=== PATIENT | female | born 1965 ===

== ENCOUNTER 2017-02-26 17:00 | Emergency (ER) | payer OTHER ==
[~2017-02-26] VITALS: Ht 170.2 cm; Wt 145.4 kg
--- NOTE | 2017-02-26 17:06 | ED.REPORT ---
HPI-General Illness Date of Service Feb 26, 2017 ED Provider: Dr. Maycol Dupont M.D. Patient is a 51 year old female with a medical history including hyperlipidemia , hypertension, diabetes, and paroxysmal atrial fibrillation on daily ASA who presents to the ED from Urgent Care reporting a cough onset six months ago. Associated symptoms include shortness of breath, subjective fever, chills, general fatigue, wheezing, and a weight gain of 30 lbs. Her cough and SOB are exacerbated with exertion and have been making it difficult for her to sleep at night. She also reported vague pleuritic symptoms at , but these have since resolved. The patient denies other symptoms. She was diagnosed with pneumonia at the end of last year and completed a course of Rocephin and doxycycline at that time, without relief of her symptoms. The patient's most recent Echo in 2014 showed a normal ejection fraction of 60%. She also had a normal nuclear stress test at the end of 2014. The patient denies a history of asthma, COPD, blood clots, recent prolonged inactivity, or recent long trips. 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 Nursing Notes Stated Complaint: SOB Chief Complaint: Respiratory Distress Nursing Notes Reviewed: Yes Allergies: Coded Allergies: No Known Allergies (Verified , 07/07/08) Scheduled Amlodipine (Amlodipine) 10 Mg Tablet 10 MG PO QAM Aspirin (Aspirin) 325 Mg Tablet 325 MG PO QAM Atorvastatin (Lipitor) 80 Mg Tablet 80 MG PO QAM Beclomethasone Dipropionate (Qvar) 8.7 Gm Aer.w.adap 2 PUFF INHALATION BID 80 MCG INHALER Chlorthalidone (Chlorthalidone) 25 Mg Tablet 25 MG PO QAM Citalopram (Citalopram) 40 Mg Tablet 40 MG PO QAM Enoxaparin Sodium (Lovenox) 150 Mg/1 Ml Syringe 150 MG SUBQ Q12 Exenatide Inj (Byetta Inj) 5 Mcg/0.02 Ml Pen.injctr 5 MCG SUBQ BIDAC Gemfibrozil (Gemfibrozil) 600 Mg Tablet 600 MG PO BIDWM Glyburide (Glyburide) 5 Mg Tab 5 MG PO BIDAC Hydrochlorothiazide (Hydrochlorothiazide) 25 Mg Tablet 25 MG PO QAM Insulin Aspart (NovoLOG U-100 Pen) 100 Unit/Ml Insuln.pen 20-50 UNITS SUBQ TIDWM Insulin Glargine (Lantus U100 Insulin Vial) 100 Unit/Ml Vial 80 UNIT SUBQ HS Losartan Potassium (Cozaar) 100 Mg Tablet 100 MG PO QAM Metformin ER (Metformin ER) 500 Mg Tablet 1,000 MG PO BIDWM Metoprolol Succinate ER (Metoprolol Succinate ER) 100 Mg Tab.er.24h 100 MG PO BID Prednisone (PredniSONE) 20 Mg Tablet 40 MG PO DAILY Spironolactone (Spironolactone) 25 Mg Tablet 25 MG PO QAM Warfarin Sodium (Coumadin) 5 Mg Tablet 5 MG PO DAILY Scheduled PRN Albuterol HFA (Proair HFA) 8.5 Gm Hfa.aer.ad 2 PUFFS INHALATION Q4H PRN PRN For Shortness of Breath Albuterol Neb Soln (Albuterol Neb Soln) 2.5 Mg/3 Ml Vial.neb 2.5 MG INHALATION Q4H PRN PRN For Wheezing Alprazolam (Alprazolam) 0.25 Mg Tablet 0.25 MG PO TID PRN PRN For Anxiety Hydrocodone-Acetaminophen 7.5-325 mg (Hydrocodone-Acetaminophen 7.5-325 mg) 1 Each Tablet 1 TABLET PO Q6H PRN PRN For Pain Ipratropium/Albuterol Sulfate (Iprat-Albut 0.5-3(2.5) mg/3 mL Inhalant Soln) 3 Ml Ampul.neb 3 ML IH Q6H PRN PRN For Shortness of Breath General Time Seen by MD: 17:05 Chief Complaint Cough Hx Obtained From: Patient Arrived By: Walk-in Sudden in Onset?: No Onset Occurred: More than a week ago... (6 months) Symptom Duration: Since onset Severity: Current: No pain currently Severity: Maximum: No pain Exacerbated by: Standing up (Exertion) Pertinent Negative: Relieved by nothing Context Related History: Reports Diabetes mellitus Recent Healthcare: Recent doctor visit, Previous diagnosis, Prior workup Similar Sx Previous: Yes Past Medical History Past Medical History Hyperlipidemia Hypertension Obesity Diabetes type 2 Paroxysmal atrial fibrillation on daily ASA Hidradenitis suppurativa Osteoarthritis Anxiety Depression Past Surgical History None reported Smoking History Former Smoker Occupation [place] [employer] Ambulatory Status Independent Review of Systems Full Review of Systems Constitutional: Reports: Chills, Fatigue, Fever (Subjective) Respiratory: Reports: Non-productive cough, Shortness of breath, Wheezing, Denies: Pleuritic pain (Previously present, has since resolved) Cardiovascular: Denies: Chest pain GI: Denies: Diarrhea, Vomiting Endocrine: Reports: Weight gain (30lbs) Psychiatric: Reports: Insomnia Complete sys rev & neg: except as marked. Physical Exam Vital Signs Vital Signs Date Time Temp Pulse Resp B/P Pulse Ox O2 Delivery O2 Flow Rate FiO2 02/26/17 19:35 95 26 133/73 95 Room Air 02/26/17 17:58 90 18 94 Room Air 02/26/17 17:09 36.7 92 13 145/86 97 Room Air Initial VS: Reviewed Head / Eyes: Atraumatic, Normocephalic ENT: Conjunctiva normal, No scleral icterus Skin: Warm, Dry Neurologic: Alert, Oriented, Nonfocal Psychiatric: Mood/affect normal, Behavior normal, Normal thought content General/Constitutional: Awake, Alert Respiratory / Chest: Breath sounds = bilat, No respiratory distress Wheezing / Retractions: Positive: Wheezing expiratory (Mild) No crackles Cardiovascular: Heart rate NL (80s), Heart sounds NL, Peripheral circulation NL (Good distal pulses) Heart Rate / Rhythm: Positive: Irregular rhythm Lower Ext Edema: Positive: Bilateral 1+ (Up 2/3 to knees) Abdomen: Soft, Non-tender, No distention Lower Extremity / Pelvis / MS: Full range of motion No unilateral calf swelling or tenderness Interpretation & Diagnostics Lab Results Interpretation Result Diagram: 02/26/17 1753 02/26/17 1753 Test 02/26/17 17:53 White Blood Count 13.0th/mm3 (3.8-10.1) Red Blood Count 5.29mil/mm3 (3.90-5.20) Hemoglobin 13.1g/dL (12.0-15.6) Hematocrit 41.1% (35.0-46.0) Mean Corpuscular Volume 77.7fL (81-100) Mean Corpuscular Hemoglobin 24.8pg (27.0-35.0) Mean Corpuscular Hemoglobin Concent 31.9% (32.0-37.0) Red Cell Distribution Width 14.8% (12.3-15.4) Platelet Count 313bil/L (150-400) Neutrophils (%) (Auto) 80.3% (40-74) Lymphocytes (%) (Auto) 11.3% (14-46) Monocytes (%) (Auto) 7.3% (4-12) Eosinophils (%) (Auto) 0.6% (0-5) Basophils (%) (Auto) 0.3% (0-3) D-Dimer < 0.50mg/L FEU (<0.50) Sodium Level 136mEq/L (134-144) Potassium Level 4.2mEq/L (3.5-5.2) Chloride Level 98mEq/L (97-108) Carbon Dioxide Level 23mmol/L (18-29) Blood Urea Nitrogen 16mg/dL (6-24) Creatinine 0.41mg/dL (0.57-1.00) Estimat Glomerular Filtration Rate 233mL/min (>59) Glucose Level 200mg/dL (60-99) Calcium Level 9.4mg/dL (8.5-10.1) Magnesium Level 1.7mg/dL (1.6-2.6) Total Bilirubin 0.4mg/dL (0.0-1.2) Aspartate Amino Transf (AST/SGOT) 15U/L (0-50) Alanine Aminotransferase (ALT/SGPT) 17U/L (0-32) Alkaline Phosphatase 69U/L (25-150) Troponin T < 0.010ug/L (0.0-0.011) Pro-B-Type Natriuretic Peptide 398.9pg/mL (0-249) Total Protein 7.2g/dL (6.4-8.4) Albumin 3.7g/dL (3.4-5.0) Hold Garner Top Tube Received (Received) ECG Interpretation ECG Interpretation: Atrial fibrillation rate 94 Normal axis Normal intervals No acute ST segment changes No T-wave abnormalities No prior ECG available for comparison Time: 17:57 Interpreted by: ED physician X-Ray Chest Interpretation Chest Xray Interpretation: IMPRESSION: 1. Mild interstitial prominence which may represent chronic interstitial lung disease or mild interstitial edema. Dictated by: Stephan Black M.D. on 02/26/2017 at 18:41 View: AP & lat Interpretation / Wet Read by: Interpret - Radiologist Re-Eval/Medical Decision Med Decision/Clinical Course Patient is a 51 year old female with a medical history including hyperlipidemia , hypertension, diabetes, and paroxysmal atrial fibrillation on daily ASA who presents to the ED from Urgent Care reporting a cough onset six months ago. Associated symptoms include shortness of breath, subjective fever, chills, general fatigue, wheezing, and a weight gain of 30 lbs. Her cough and SOB are exacerbated with exertion and have been making it difficult for her to sleep at night. She also reported vague pleuritic symptoms at , but these have since resolved. The patient denies other symptoms. She was diagnosed with pneumonia at the end of last year and completed a course of Rocephin and doxycycline at that time, without relief of her symptoms. The patient's most recent Echo in 2014 showed a normal ejection fraction of 60%. She also had a normal nuclear stress test at the end of 2014. The patient denies a history of asthma, COPD, blood clots, recent prolonged inactivity, or recent long trips. 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 Here in the emergency department the patient is afebrile with stable vital signs and examination as above. Patient was given a DuoNeb in ED reported significant symptomatic improvement. ECG 17:57 Atrial fibrillation rate 94 Normal axis Normal intervals No acute ST segment changes No T-wave abnormalities No prior ECG available for comparison LABS: Leukocytosis at 13 Hematocrit 41.1 MCV 77.7 CMP unremarkable other than a glucose of 200 Troponin negative BNP 398 D-Dimer negative Chest x-ray: 1. Mild interstitial prominence which may represent chronic interstitial lung disease or mild interstitial edema. She remained comfortable and in no apparent distress. Overall presentation relatively unconvincing for pulmonary embolism. Patient without clinical findings of DVT and she has no major risk factors for PE. D-dimer is negative. BNP is not significantly elevated and I do not appreciate significant pulmonary edema on her chest x-ray. EKG does not do not see any acute ischemic changes and initial troponin is negative. No significant electrolyte abnormalities. Patient reported significant symptomatic improvement after nebulizer treatment and was given 40 mg oral prednisone as well as a 5 day course of prednisone. She was given an albuterol inhaler for treatment of her wheezing and respiratory symptoms. She was started on Lovenox bridged to Coumadin and she will follow up closely with her primary care physician to monitor her INR. She was educated on how to self administer Lovenox. At this time I feel that she is appropriate for discharge home. Prior to discharge follow-up and return precautions were reviewed in detail with the patient who verbalized understanding and agreement with the plan. The patient was discharged in stable condition. Source of Hx: Old records Time of Eval: 18:58 Patient Status: Condition improved Re-Evaluation/Progress Note: Discussed with patient lab and x-ray results, diagnosis, and plan for discharge. Follow-up and return to the ER instructions given. Patient agrees with plan for care and all questions were addressed. Counseled Regarding: Diagnosis, Lab results, Need for follow-up, When/why to return to ED Discharge & Departure Primary Impression: COPD exacerbation Additional Impressions: Atrial fibrillation Atrial fibrillation type: paroxysmal Qualified Code: I48.0 - Paroxysmal atrial fibrillation Shortness of breath Chest pain made worse by breathing Tobacco abuse Wheezing Disposition: Home Discharge Condition All VS Reviewed: Yes Condition: Improved Patient Instructions: Atrial Fibrillation (ED), Chronic Obstructive Pulmonary Disease (ED) Additional Instructions: Thank you for seeking care at the emergency room. It is difficult for us to make definitive diagnoses in the ED but we believe that you are experiencing shortness of breath related to your smoking history and likely underlying COPD. Our primary goal today in the ED was to evaluate you for any life-threatening conditions. Your evaluation was reassuring. You will be discharged with a prescription for anticoagulation, your doctor has recommended that you be on a blood thinner and today we have started this with help from our emergency room pharmacists. Please start giving herself Lovenox injections twice daily as directed and taking Coumadin. You will need to have your INR checked and keep taking Lovenox until your INR is therapeutic. You should follow-up with your primary doctor in the next week. Please use albuterol inhaler with spacer every 2-4 hours as needed and take full course of prednisone. You should return to the ED immediately if you develop any worsening symptoms, signs of bleeding, fevers, vomiting, cough, shortness of breath, chest pain, lightheadedness, weakness or any other concerning signs or symptoms. Thank you for letting us partake in your care today. Referrals: Brii Plasencia MD (PCP) Scribe Attestation Portions of this note were transcribed by Juany Gomez. I, Dr. Dupont, personally performed the history, physical exam, and medical decision-making; I reviewed and confirmed the accuracy of the information in the transcribed note. Signed by: Mack Donald, 02/26/2017, 21:30 copies to: Brii Plasencia MD, Beck O MD Feb 26, 2017 17:06 JUANY GOMEZ Feb 26, 2017 17:33
[2017-02-26 17:09] VITALS: BP 145/86; PULSE 92; RESP 13; O2SAT 97
[2017-02-26] MEDS ORDERED: Albuterol-Ipratropium 3 mL Inhalation Solution NEB ONE (17:45)
[2017-02-26 17:58] VITALS: PULSE 90; RESP 18; O2SAT 94
[2017-02-26 18:00] LABS: BASOPHILS % (AUTO) 0.3 % (0-3); EOSINOPHILS % (AUTO) 0.6 % (0-5); MONOCYTES % (AUTO) 7.3 % (4-12); Mean Corpuscular Hemoglobin 24.8 pg (27.0-35.0); Mean Corpuscular Volume 77.7 fL (81-100); NEUTROPHILS % (AUTO) 80.3 % (40-74); Platelet Count 313 bil/L (150-400)
[2017-02-26] MEDS ORDERED: IPRA3AMP IH (18:29)
[2017-02-26] MEDS ORDERED: HYDR-3825 PO (18:29)
[2017-02-26] MEDS ORDERED: DOXY100C2 PO (18:29)
[2017-02-26] MEDS ORDERED: BECL8.7A6 INHALATION (18:29)
[2017-02-26] MEDS ORDERED: ALPR0.254 PO (18:29)
[2017-02-26] MEDS ORDERED: GEMF600T3 PO (18:29)
[2017-02-26] MEDS ORDERED: METF500T7 PO (18:29)
[2017-02-26] MEDS ORDERED: AMLO10TA3 PO (18:29)
[2017-02-26] MEDS ORDERED: METO-274 PO (18:29)
[2017-02-26] MEDS ORDERED: CITA40TA13 PO (18:29)
[2017-02-26] MEDS ORDERED: HYG25 PO (18:29)
[2017-02-26] MEDS ORDERED: APIX5TAB PO (18:29)
[2017-02-26] MEDS ORDERED: INSU100I SUBQ (18:29)
[2017-02-26] MEDS ORDERED: BENZ200C44 PO (18:29)
[2017-02-26] MEDS ORDERED: INSU100V7 SUBQ (18:29)
[2017-02-26] MEDS ORDERED: GLBR5T PO (18:29)
[2017-02-26] MEDS ORDERED: ATOR80TA PO (18:29)
[2017-02-26] MEDS ORDERED: ASPI325T32 PO (18:29)
[2017-02-26] MEDS ORDERED: EXEN5PEN2 SUBQ (18:29)
[2017-02-26] MEDS ORDERED: LOSA100T29 PO (18:29)
[2017-02-26] MEDS ORDERED: ALBU8.5H2 INHALATION (18:29)
[2017-02-26] MEDS ORDERED: SPIR25TA3 PO (18:30)
[2017-02-26 18:34] LABS: Magnesium 1.7 mg/dL (1.6-2.6); TROPONIN T < 0.010 ug/L (0.0-0.011)
--- NOTE | 2017-02-26 18:45 | DRSVH ---
PROCEDURE: X-RAY CHEST, TWO VIEWS ([id number]) INDICATIONS: Shortness of breath TECHNIQUE: 2 views of the chest were acquired. COMPARISON: [facility], CR, CHEST 2VW, 02/27/2012, 10:20. [facility], CR, CH EST 2VW, 07/02/2008, 10:52. [facility], CR, XR CHEST 2VW, 01/24/2017, 15:49. FINDINGS: Surgical changes and devices: None. Lungs and pleura: No pleural effusions or pneumothorax. There is mild interstitial prominence again noted. No focal consolidation. Mediastinum: Mediastinal contours are normal. Heart size is normal. Bones and chest wall: No suspicious bony abnormalities. Soft tissues appear unremarkable. IMPRESSION: 1. Mild interstitial prominence which may represent chronic interstitial lung disease or mild inters titial edema. Dictated by: Stephan Black M.D. on 02/26/2017 at 18:41 Approved by: Stephan Black M.D. on 02/26/2017 at 18:43
[2017-02-26] MEDS ORDERED: Albuterol HFA 60 Puff 8 Gm Inhaler INHALATION PRN (18:50)
[2017-02-26] MEDS ORDERED: WARF5TAB PO (18:50)
[2017-02-26] MEDS ORDERED: ENOX150D SUBQ (18:50)
[2017-02-26] MEDS ORDERED: HYDR25TA4 PO (18:58)
[2017-02-26] MEDS ORDERED: predniSONE 20 mg Tablet PO ONE (19:00)
[2017-02-26] MEDS ORDERED: LOSA100T3 PO (19:00)
[2017-02-26] MEDS ORDERED: PRE20 PO (19:02)
[2017-02-26] MEDS ORDERED: _Albuterol-HFA 60 Puff Inhaler INHALATION PRN (19:05)
[2017-02-26 19:35] VITALS: BP 133/73; PULSE 95; RESP 26; O2SAT 95
[2017-02-26] MEDS ORDERED: ALBU2.5V4 INHALATION (19:44)
== END 2017-02-26 19:48 | disposition home or self-care (01) ==
LOC: SED 17:00
DX: J44.1 Chronic obstructive pulmonary disease with (acute) exacerbation (principal); I48.0 Paroxysmal atrial fibrillation; I11.9 Hypertensive heart disease without heart failure; E11.9 Type 2 diabetes mellitus without complications; E78.5 Hyperlipidemia, unspecified; Z87.891 Personal history of nicotine dependence; Z79.4 Long term (current) use of insulin; Z79.82 Long term (current) use of aspirin; Z79.84 Long term (current) use of oral hypoglycemic drugs; Z79.01 Long term (current) use of anticoagulants
CPT/HCPCS: 71020; 80053; 83735; 83880; 84484; 85025; 85378; 93005; 94664; 96372; 99285; J1650; J7620